=== PATIENT | female | born 1985 | race Caucasian/White ===

== ENCOUNTER 2017-04-16 04:21 | Emergency (ER) | payer OTHER ==
[~2017-04-16] VITALS: Ht 167.6 cm; Wt 70.0 kg
[2017-04-16 04:38] VITALS: BP 115/75
== END 2017-04-16 05:11 | disposition left against medical advice (07) ==
LOC: ED 05:05
DX: Z04.8 Encounter for examination and observation for other specified reasons (principal); E07.9 Disorder of thyroid, unspecified
CPT/HCPCS: 99283; 99284